=== PATIENT | female | born 1995 | race Caucasian/White ===

== ENCOUNTER 2019-08-08 07:34 | Emergency (ER) | payer OTHER ==
[2019-08-08] MEDS ORDERED: Ketorolac 30 MG/ML SDV IM ONE (08:30)
--- NOTE | 2019-08-08 08:40 | EDM.PDOC ---
ED HPI GENERAL MEDICAL PROBLEM - General Chief Complaint: Respiratory Problem Stated Complaint: CHEST PAIN Time Seen by Provider: 08/08/19 08:18 - History of Present Illness INITIAL COMMENTS - FREE TEXT/NARRATIVE: 24-year-old female no medical problems presenting to ER for subjective fever cough body aches and pleuritic pain when she is coughing. No sick contacts. symptoms started day before presenting to ER. No vomiting no diarrhea sometimes feels nauseous no shortness of breath. Feels a right-sided earache. 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 (see below) (nyquil) Head Pain Score (Numeric/FACES): 7 - Related Data Allergies Allergy/AdvReac Type Severity Reaction Status Date / Time No Known Allergies Allergy Verified 08/08/19 07:49 Home Meds: Home Meds Amoxicillin/Clavulanate K [Augmentin 875-125 MG] 1 tab PO BID 7 Days #14 tablet 08/08/19 [Rx] Oseltamivir [Tamiflu] 75 mg PO BID 5 Days #10 cap 08/08/19 [Rx] Past Medical History - Past Health History Medical/Surgical History: Denies Medical/Surgical History - Infectious Disease History Infectious Disease History: Reports: None Social & Family History - Family History Family Medical History: Noncontributory - Tobacco Use Smoking Status *Q: Current Every Day Smoker Years of Tobacco use: 1 Packs/Tins Daily: 0.5 - Caffeine Use Caffeine Use: Reports: Coffee - Recreational Drug Use Recreational Drug Use: No ED ROS GENERAL - Review of Systems Review Of Systems: See Below Constitutional: Reports: Fever HEENT: Reports: Ear Pain Respiratory: Reports: Cough Cardiovascular: Reports: No Symptoms Endocrine: Reports: No Symptoms GI/Abdominal: Reports: Nausea : Reports: No Symptoms Musculoskeletal: Reports: No Symptoms, Other (bodyaches) Skin: Reports: No Symptoms ED EXAM, GENERAL - Physical Exam Exam: See Below Exam Limited By: No Limitations General Appearance: Alert, WD/WN Eye Exam: Bilateral Eye: Normal Inspection Nose: Normal Inspection Throat/Mouth: Normal Inspection Head: Atraumatic, Normocephalic Neck: Normal Inspection, Supple Respiratory/Chest: No Respiratory Distress Cardiovascular: Normal Peripheral Pulses, No JVD GI/Abdominal: Normal Bowel Sounds, Soft, Non-Tender (Female) Exam: Deferred. No: Normal External Exam Rectal (Female) Exam: Deferred Back Exam: Normal Inspection Extremities: Non-Tender Neurological: Alert, Oriented, Normal Gait Psychiatric: Normal Affect Skin Exam: Warm Course - Vital Signs Last Recorded V/S: Last Vital Signs Temp 100.1 F 08/08/19 07:49 Pulse 97 08/08/19 07:49 Resp 18 08/08/19 07:49 BP 112/64 08/08/19 07:49 Pulse Ox 98 08/08/19 07:49 - Orders/Labs/Meds Labs: Laboratory Tests 08/08/19 Range/Units 08:48 HCG, Qual NEGATIVE (NEG) Meds: Medications Discontinued Medications Generic Name Dose Route Start Last Admin Trade Name Fregayle PRN Reason Stop Dose Admin Ketorolac Tromethamine 30 mg 08/08/19 08:30 Toradol IM 08/08/19 08:31 ONETIME ONE - Re-Assessments/Exams Free Text/Narrative Re-Assessment/Exam: 08/08/19 09:31 Patient's tolerating by mouth no signs of sepsis or hypoxia lungs were clear will treat her with Tamiflu as she is within the window she also had some fluid behind the right TM we'll give her Augmentin for otitis media. Discussed strict return precautions with the patient also educated her how to prevent the flu from spreading in her household we gave her Toradol for symptomatic relief. To return to the ER if you've any shortness of breath any trouble breathing intractable vomiting or any concerns. She can take Tylenol or Motrin for symptomatic relief at home Departure - Departure Time of Disposition: 09:33 Disposition: Home, Self-Care 01 Clinical Impression: Influenza A, Otitis media - Discharge Information Prescriptions: Amoxicillin/Clavulanate K [Augmentin 875-125 MG] 1 tab PO BID 7 Days #14 tablet Oseltamivir [Tamiflu] 75 mg PO BID 5 Days #10 cap Instructions: H1N1 Influenza, Otitis Media, Adult, [id number] Referrals: PCP,None [Primary Care Provider] - Forms: ED Department Discharge Additional Instructions: Return to ED if your symptoms worsen or you have any concerns. The following information is given to patients seen in the emergency department who are being discharged to home. This information is to outline your options for follow-up care. We provide all patients seen in our emergency department with a follow-up referral. The need for follow-up, as well as the timing and circumstances, are variable depending upon the specifics of your emergency department visit. If you don't have a primary care physician on staff, we will provide you with a referral. We always advise you to contact your personal physician following an emergency department visit to inform them of the circumstance of the visit and for follow-up with them and/or the need for any referrals to a consulting specialist. The emergency department will also refer you to a specialist when appropriate. This referral assures that you have the opportunity for follow-up care with a specialist. All of these measure are taken in an effort to provide you with optimal care, which includes your follow-up. Under all circumstances we always encourage you to contact your private physician who remains a resource for coordinating your care. When calling for follow-up care, please make the office aware that this follow-up is from your recent emergency room visit. If for any reason you are refused follow-up, please contact the [facility] Emergency Department at and asked to speak to the emergency department charge nurse. Sepsis Event Note - Evaluation Sepsis Screening Result: Possible Sepsis Risk - Focused Exam Vital Signs: Vital Signs Temp Pulse Resp BP Pulse Ox 08/08/19 07:49 100.1 F 97 18 112/64 98 Date Exam was Performed: 08/08/19 Time Exam was Performed: 09:31
== END 2019-08-08 09:50 | disposition home or self-care (01) ==
LOC: MW.ED 07:34
DX: J10.1 Influenza due to other identified influenza virus with other respiratory manifestations (principal); H66.91 Otitis media, unspecified, right ear; F17.210 Nicotine dependence, cigarettes, uncomplicated
CPT/HCPCS: 36415; 84703; 87804; 99285; J1885

== ENCOUNTER 2022-07-22 12:16 | Emergency (ER) | payer OTHER, BC ==
[2022-07-22] MEDS ORDERED: Diphtheria,Pertussis(Acell),Tetanus Vaccine 0.5 ML Syringe IM ONE (12:18)
[2022-07-22 14:51] LABS: HIV12 AG/AB 4TH GEN W/REFLEX < 0.1 INDEX (<1.0)
== END 2022-07-22 14:12 | disposition home or self-care (01) ==
LOC: MW.ED 12:16
DX: S61.232A Puncture wound without foreign body of right middle finger without damage to nail, initial encounter (principal); Z23 Encounter for immunization; W27.3XXA Contact with needle (sewing), initial encounter
CPT/HCPCS: 36415; 86706; 86803; 87389; 90471; 90715; 99283; 99284-25

== ENCOUNTER 2022-12-25 13:13 | Emergency (ER) | payer OTHER, BC ==
[2022-12-25 16:28] LABS: HIV12 AG/AB 4TH GEN W/REFLEX < 0.1 INDEX (<1.0)
== END 2022-12-25 15:05 | disposition home or self-care (01) ==
LOC: MW.ED 13:13
DX: S61.031A Puncture wound without foreign body of right thumb without damage to nail, initial encounter (principal); F17.210 Nicotine dependence, cigarettes, uncomplicated; W46.0XXA Contact with hypodermic needle, initial encounter; Y92.89 Other specified places as the place of occurrence of the external cause; Y99.0 Civilian activity done for income or pay
CPT/HCPCS: 36415; 86803; 87340; 87389; 99283